=== PATIENT | female | born 1985 | race Caucasian/White ===

== ENCOUNTER 2023-03-03 18:12 | Emergency (ER) | payer BC ==
[~2023-03-03] VITALS: Ht 172.7 cm; Wt 74.8 kg
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
--- NOTE | 2023-03-03 18:45 | NUR ---
DR GOODWIN AT BED SIDE.
--- NOTE | 2023-03-03 18:58 | NUR ---
PATIENT SEND FOR RADIOLOGY.
[2023-03-03] MEDS ORDERED: IBUPROFEN 400 MG TABLET PO ONE (19:00)
[2023-03-03] MEDS ORDERED: ACETAMINOPHEN ES 500 MG TABLET PO ONE (19:00)
[2023-03-03] MEDS ORDERED: ACETAMINOPHEN ES 500 MG TABLET ONE ×3 (19:06→19:59)
[2023-03-03] MEDS ORDERED: IBUPROFEN 400 MG TABLET ONE ×3 (19:07→19:59)
--- NOTE | 2023-03-03 20:03 | NUR ---
Patient discharged to home in stable condition. Written and verbal after care instructions given. Patient verbalizes understanding of instruction.
[2023-03-03 20:04] VITALS: BP 123/71; TEMP 98.2
== END 2023-03-03 20:04 | disposition home or self-care (01) ==
LOC: ER 18:53
DX: S13.4XXA Sprain of ligaments of cervical spine, initial encounter (principal); S80.02XA Contusion of left knee, initial encounter; V89.2XXA Person injured in unspecified motor-vehicle accident, traffic, initial encounter; Y93.89 Activity, other specified; Y92.488 Other paved roadways as the place of occurrence of the external cause; Y99.8 Other external cause status
CPT/HCPCS: 70450-TC; 72125-TC